=== PATIENT | female | born 1995 | race Caucasian/White ===

== ENCOUNTER → 2016-06-11 | Outpatient (REF) | payer BC | LOC: M SFHCLERA 19:29 | PROVIDERS: ATTEND Physician Assistant | DX: R05 Cough (principal) ==

== ENCOUNTER → 2016-06-11 | Outpatient (CLI) | payer BC ==
--- NOTE | 2016-06-11 19:35 | REP ---
Chest two views HISTORY: Cough Comparison: None The lungs are clear. The heart is normal in size. The pulmonary vasculature is normal in appearance. The bony structure is intact. IMPRESSION: No acute disease. Signed by Flako Rodriguez MD 06/11/2016 07:27 P
== END ==
LOC: M LRY 19:09
PROVIDERS: ATTEND Physician Assistant
DX: R05 Cough (principal)

== ENCOUNTER → 2018-09-28 | Outpatient (CLI) | payer OTHER ==
--- NOTE | 2018-09-28 18:37 | REP ---
Clinical: Positive test. Technique: Transabdominal and transvaginal first trimester obstetrical ultrasound with color Doppler evaluation. Findings: Heterogeneous uterus measures 8.0 x 4.1 x 5.5 cm. Small cystic changes noted to the endometrium. A gestational sac is identified with yolk sac, but no pole. Mean sac diameter of 6.7 mm corresponds to 6 weeks 0 days gestational age. Bilateral ovaries are normal in appearance. Right ovary measures 2.7 x 1.7 x 1.5 cm. Left ovary measures 3.0 x 1.5 x 2.3 cm with 1.9 cm presumed hemorrhagic corpus luteal cyst. Impression: Gestational sac with yolk sac, but no pole currently identifiable. Differential diagnosis includes early intrauterine , possible blighted ovum, and less likely ectopic cannot be excluded. Correlation with serial HCG levels and follow-up ultrasound may be warranted. Electronically Signed by Silvio Shell MD 09/28/2018 06:29 P
[2018-09-28 21:26] LABS: ESTRADIOL 971.6 PG/ML; PROGESTERONE 28.38 NG/ML
== END ==
LOC: M RAD 18:00
PROVIDERS: ATTEND Obstetrics & Gynecology Reproductive Endocrinology
DX: Z32.01 Encounter for pregnancy test, result positive (principal)

== ENCOUNTER → 2018-10-05 | Outpatient (CLI) | payer OTHER ==
[~2018-10-05] MED LIST: PRENTAB9 PO
--- NOTE | 2018-10-05 19:10 | REPVR ---
EXAM: US First Trimester, Transabdominal and US Duplex Artery or Vein, Ovaries, Limited EXAM DATE/TIME: 10/05/2018 6:02 PM CLINICAL HISTORY: 23 years old, female; Lmp or gestational age (in weeks): 5wks; Other: Gestationa dating; ; Additional info: Viability TECHNIQUE: Imaging protocol: Real-time transabdominal obstetrical ultrasound of the maternal pelvis and a first trimester , less than 14 weeks 0 days, with image documentation. Real-time duplex ultrasound scan of the arterial or venous flow of the ovaries with B-mode, color Doppler flow and spectral waveform analysis, limited Duplex. COMPARISON: US OB 09/28/2018 5:59 PM. This demonstrated an intrauterine gestational sac containing a yolk sac. FINDINGS: GESTATION: Gestation: There is an intrauterine gestational sac demonstrating decidual reaction. This contains a yolk sac and pole. The pole crown-rump length is 0.4 cm corresponding to a gestational age of 6 weeks 1 day. Heart rate: The heart rate is 117 bpm. Placenta: No visible subchorionic bleed. Amniotic fluid: Amniotic and chorionic fluid are normal for gestational age. BIOMETRY: Estimated gestational age: See Gestation Finding. Estimated due date: The LILY is 05/30/2019. MATERNAL: Uterus: Unremarkable. Cervix: Unremarkable. Right adnexa: The right ovary measures 2.7 x 1.3 x 1.4 cm. Normal color and spectral blood flow. The arterial peak systolic velocity is 12.9 cm/s. Left adnexa: The left ovary measures 3.2 x 1.4 x 3.0 cm. Normal color and spectral blood flow. The arterial peak systolic velocity is 8.1 cm/s. Intraperitoneal: No intraperitoneal free fluid. IMPRESSION: Viable intrauterine gestation, as above. Electronically signed by: Kerline Lyle On 10/05/2018 19:10:13 PM
[2018-10-05 19:35] LABS: ESTRADIOL 918.3 PG/ML; PROGESTERONE 32.53 NG/ML; THYROID STIMULATING HORMONE 1.22 uIU/ML (0.358-3.740)
== END ==
LOC: M RAD 17:46
PROVIDERS: ATTEND Obstetrics & Gynecology Reproductive Endocrinology
DX: Z32.01 Encounter for pregnancy test, result positive (principal); Z36.89 Encounter for other specified antenatal screening; Z3A.01 Less than 8 weeks gestation of pregnancy

== ENCOUNTER → 2018-12-08 | Outpatient (CLI) | payer BC ==
[2018-12-08 18:31] LABS: BASO % 0.2 % (0.0-1.0); EOS % 0.3 % (0.0-3.0); HEMATOCRIT 36.7 % (36.0-47.0); HEMOGLOBIN 12.8 g/dl (12.0-15.5); LYMPH # 2.2 10^3/uL (1.5-5.0); LYMPH % 17.8 % (24.0-44.0); MEAN CORPUSCULAR HEMOGLOBIN 31.9 pg (27.0-33.0); MEAN CORPUSCULAR HGB CONC 34.9 g/dl (32.0-36.5); MEAN CORPUSCULAR VOLUME 91.5 fl (80.0-96.0); MONO # 0.6 10^3/uL (0.0-0.8); NEUTROPHILS # 9.3 10^3/uL (1.5-8.5); NEUTROPHILS % 76.2 % (36.0-66.0); PLATELET COUNT, AUTOMATED 333 10^3/uL (150-450); RED BLOOD COUNT 4.01 10^6/uL (4.00-5.40); WHITE BLOOD COUNT 12.2 10^3/uL (4.0-10.0)
[2018-12-08 20:37] LABS: CHLAMYDIA DNA AMPLIFICATION NEGATIVE (NEGATIVE); GC DNA AMPLIFICATION NEGATIVE (NEGATIVE)
[2018-12-08 20:51] LABS: RUBELLA IgG QUALITATIVE IMMUNE (IMMUNE)
[2018-12-10 12:04] LABS: HIV 1&2 SCREEN CENTAUR NEGATIVE (NEGATIVE)
== END ==
LOC: M SMT 13:16
PROVIDERS: ATTEND Advanced Practice Midwife
DX: Z34.81 Encounter for supervision of other normal pregnancy, first trimester (principal); Z3A.00 Weeks of gestation of pregnancy not specified

== ENCOUNTER → 2019-01-03 | Outpatient (CLI) | payer BC ==
--- NOTE | 2019-01-03 09:31 | REP ---
OB ULTRASOUND: Real-time sonographic evaluation of the gravid uterus is performed. There is a single living intrauterine gestation. The estimated gestational age is 18 weeks 2 days based on fertilization date, EDC 06/04/2019. BPD 46 mm = 19 weeks 6 days, at the 90th percentile. HC 167 mm = 19 weeks 3 days, at the 83rd percentile. AC 150 mm = 20 weeks 2 days, at the 91st percentile. Femur length 30 mm = 119 weeks 2 days, at the 75th percentile. HC/AC ratio 1.12 within normal range of 1.07 to 1.26. Estimated weight 311 grams over 97th percentile. Cervix is closed and measures 2.8 cm in length. heart rate 158 beats per minute. SEEN/GROSSLY UNREMARKABLE Lateral ventricles Yes Posterior fossa Yes Upper lip No Four-chamber heart Yes LVOT Yes RVOT No Stomach Yes Cord insertion Yes Three vessel cord Yes Kidneys Yes Bladder Yes Spine Yes position: Vertex. Placenta: Posterior and grade 0 with no previa or abruption. Amniotic fluid: Within normal limits. Electronically Signed by Dave Amado MD 01/03/2019 04:29 P
== END ==
LOC: M RAD 06:23
PROVIDERS: ATTEND Advanced Practice Midwife
DX: Z34.82 Encounter for supervision of other normal pregnancy, second trimester (principal); Z3A.18 18 weeks gestation of pregnancy

== ENCOUNTER → 2019-02-03 | Outpatient (CLI) | payer BC ==
--- NOTE | 2019-02-03 09:42 | REP ---
Clinical: Anatomical evaluation. Comparison: 01/03/2019 . Findings: Examination demonstrates a single live intrauterine in cephalic presentation. motion is identified by technologist. Placenta is noted posterior and grade zero without evidence for placenta previa or abruption. Amniotic fluid volume is normal. Cervix measures 3.5 cm in length and appears closed. No evidence for nuchal cord. Gestational age by LMP 23 weeks 3 days with LILY 05/30/2019 . Gestational age by current measurements 24 weeks 2 days with LILY 05/24/2019 . FHR equals 141 beats per minute. Estimated weight 669 grams ( 95th percentile). Anatomical assessment demonstrates normal structures including cranium, choroid plexus, cavum, cerebellum/posterior fossa, facial features, lungs, four-chamber heart/ventricular outflow tracts, diaphragm, stomach, cord insertion/three-vessel cord, kidneys/bladder, spine, and extremities. Impression: Single live intrauterine in cephalic presentation demonstrating appropriate interval growth. Anatomical assessment is complete and normal. Electronically Signed by Silvio Shell MD 02/03/2019 09:35 A
== END ==
LOC: M RAD 08:48
PROVIDERS: ATTEND Advanced Practice Midwife
DX: O09.812 Supervision of pregnancy resulting from assisted reproductive technology, second trimester (principal)

== ENCOUNTER → 2019-02-22 | Outpatient (CLI) | payer BC ==
[2019-02-22 14:04] LABS: HEMATOCRIT 35.8 % (36.0-47.0); HEMOGLOBIN 11.8 g/dl (12.0-15.5); MEAN CORPUSCULAR HEMOGLOBIN 31.1 pg (27.0-33.0); MEAN CORPUSCULAR VOLUME 94.5 fl (80.0-96.0); PLATELET COUNT, AUTOMATED 321 10^3/uL (150-450); RED BLOOD COUNT 3.79 10^6/uL (4.00-5.40)
== END ==
LOC: M SMT 08:18
PROVIDERS: ATTEND Advanced Practice Midwife
DX: O26.892 Other specified pregnancy related conditions, second trimester (principal); Z3A.00 Weeks of gestation of pregnancy not specified

== ENCOUNTER → 2019-03-16 | Outpatient (CLI) | payer BC | LOC: M LAB 07:08 | PROVIDERS: ATTEND Advanced Practice Midwife | DX: R73.02 Impaired glucose tolerance (oral) (principal) ==

== ENCOUNTER 2019-04-12 15:57 | Outpatient (CLI) | payer BC ==
[~2019-04-12] VITALS: Ht 162.6 cm; Wt 95.2 kg
[2019-04-12 16:31] VITALS: BP 134/88
[2019-04-12 16:38] VITALS: BP 136/70
[2019-04-12] MEDS ORDERED: PRENTAB9 PO (17:14)
[2019-04-12 17:26] VITALS: BP 119/71
[2019-04-12] MEDS ORDERED: FIORICET TAB PO ONE (18:45)
[2019-04-12 18:48] VITALS: BP 136/80
== END 2019-04-12 20:10 | disposition home or self-care (01) ==
LOC: M LDO 15:57
PROVIDERS: ATTEND Obstetrics & Gynecology
DX: O99.353 Diseases of the nervous system complicating pregnancy, third trimester (principal); G43.909 Migraine, unspecified, not intractable, without status migrainosus; Z3A.33 33 weeks gestation of pregnancy
CPT/HCPCS: 59025; G0463

== ENCOUNTER → 2019-05-04 | Outpatient (REF) | payer BC | LOC: M SFHCWAGY 13:29 | PROVIDERS: ATTEND Advanced Practice Midwife | DX: O09.813 Supervision of pregnancy resulting from assisted reproductive technology, third trimester (principal) ==

== ENCOUNTER 2019-05-18 20:32 | Outpatient (CLI) | payer BC ==
[~2019-05-18] VITALS: Ht 162.6 cm; Wt 95.6 kg
[2019-05-18 20:54] VITALS: BP 121/71
[2019-05-18 23:13] VITALS: BP 134/83
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
== END 2019-05-18 23:20 | disposition home or self-care (01) ==
LOC: M LDO 20:32
PROVIDERS: ATTEND Advanced Practice Midwife
DX: O26.893 Other specified pregnancy related conditions, third trimester (principal); R10.9 Unspecified abdominal pain; O09.813 Supervision of pregnancy resulting from assisted reproductive technology, third trimester; Z3A.38 38 weeks gestation of pregnancy
CPT/HCPCS: 59025; G0378; G0463

== ENCOUNTER 2019-05-26 17:39 | Inpatient (IN) | payer BC ==
[2019-05-26] VITALS (16 sets, daily range): BP systolic 118–164; BP diastolic 57–107
[~2019-05-26] VITALS: Ht 162.6 cm; Wt 91.8 kg
[~2019-05-26 17:39] MED LIST changes: -MAPA500T2 PO; -OSEL75CA PO
[2019-05-26] MEDS ORDERED: LR 1,000 ML IV SCH (18:05)
[2019-05-26] MEDS ORDERED: LACTATED RINGER'S 1000 ML IV STA (18:05)
[2019-05-26] MEDS ORDERED: MAPA500T2 PO ×2 (18:38→18:40)
[2019-05-26 18:48] LABS: HEMATOCRIT 36.3 % (36.0-47.0); HEMOGLOBIN 12.3 g/dl (12.0-15.5); MEAN CORPUSCULAR HEMOGLOBIN 30.2 pg (27.0-33.0); MEAN CORPUSCULAR HGB CONC 33.9 g/dl (32.0-36.5); MEAN CORPUSCULAR VOLUME 89.2 fl (80.0-96.0); PLATELET COUNT, AUTOMATED 287 10^3/uL (150-450); RED BLOOD COUNT 4.07 10^6/uL (4.00-5.40); WHITE BLOOD COUNT 12.8 10^3/uL (4.0-10.0)
[2019-05-26] MEDS ORDERED: FENTANYL 2MCG/ML ROPIVACAINE 0.2% IN 0.9% NACL 100ML IVBAG As Ordered ONE (18:54)
[2019-05-26] MEDS ORDERED: OXYTOCIN 30 UNITS IN 0.9% NaCl 500ML IV BAG (J2590) As Ordered ONE (20:23)
[2019-05-26] MEDS: LR 1,000 ML IV SCH (20:55)
[2019-05-26] MEDS ORDERED: OXYTOCIN DRIP 30 UNITS in IV 1 EA IV SCH (20:55)
[2019-05-26] MEDS ORDERED: ACETAMINOPHEN TAB 650MG DOSE (2X325MG) PO PRN (21:00)
[2019-05-26] MEDS ORDERED: RHOGAM 300 MCG (1500 IU) INJ (J2790) IM SCH (21:00)
[2019-05-26] MEDS ORDERED: ONDANSETRON 4MG/2ML VIAL (J2405) IV PRN (21:00)
[2019-05-26] MEDS ORDERED: DOCUSATE SODIUM 100 MG CAP PO PRN (21:00)
[2019-05-26] MEDS ORDERED: IBUPROFEN 600 MG TAB PO PRN (21:00)
[2019-05-26] MEDS ORDERED: ACETAMINOPHEN 500 MG TAB PO PRN (21:00)
[2019-05-26] MEDS ORDERED: DIBUCAINE 1% OINTMENT 30GM TOP PRN (21:00)
[2019-05-26] MEDS ORDERED: MEASLES,MUMPS,RUBELLA VACCINE INJ (MMR-II) (90707) SC SCH (21:00)
[2019-05-26] MEDS ORDERED: PROMETHAZINE 25 MG TAB PO PRN (21:00)
[2019-05-26] MEDS: OSELTAMIVIR PHOSPHATE 75 MG CAP (TAMIFLU) PO SCH (21:06)
[2019-05-26] MEDS: IBUPROFEN 800 MG TAB PO PRN (23:22)
[2019-05-27] VITALS (33 sets, daily range): BP systolic 119–150; BP diastolic 58–83
[2019-05-27] MEDS ORDERED: MORPHINE 10 MG/ML 1ML VIAL (J2270) As Ordered ONE
[2019-05-27 01:15] LABS: HEMATOCRIT 30.1 % (36.0-47.0)
[2019-05-27 01:19] LABS: HEMOGLOBIN 10.3 g/dl (12.0-15.5)
[2019-05-27 02:17] LABS: INR 1.06; PARTIAL THROMBOPLASTIN TIME 31.5 SECONDS (25.0-38.4); PROTHROMBIN TIME 13.5 SECONDS (11.8-14.0)
[2019-05-27] MEDS ORDERED: fentaNYL 100 MCG/2 ML INJECTION (J3010) As Ordered ONE (02:23)
[2019-05-27] MEDS ORDERED: SUCCINYLCHOLINE 100 MG/5 ML SYRINGE (J0330) As Ordered ONE (02:23)
[2019-05-27] MEDS ORDERED: MIDAZOLAM INJ 2 MG/2 ML VIAL (J2250) As Ordered ONE (02:23)
[2019-05-27] MEDS ORDERED: LIDOCAINE 2% INJ 100 MG/5 ML SDV (FOR ANES.) As Ordered ONE (02:23)
[2019-05-27] MEDS ORDERED: propofoL 200 MG/20 ML VIAL As Ordered ONE (02:23)
[2019-05-27] MEDS ORDERED: ESTROGENS VAGINAL CREAM 30GM As Ordered ONE (02:34)
[2019-05-27] MEDS ORDERED: KETOROLAC 60 MG/2 ML VIAL (J1885) As Ordered ONE (02:38)
[2019-05-27] MEDS ORDERED: dexameTHASONE 4 MG/ML 1ML VIAL (J1100) As Ordered ONE (02:38)
[2019-05-27] MEDS ORDERED: ONDANSETRON 4MG/2ML VIAL (J2405) As Ordered ONE (02:38)
[2019-05-27] MEDS ORDERED: MORPHINE 10 MG/ML 1ML VIAL (J2270) IV ONE (03:00)
[2019-05-27] MEDS ORDERED: MORPHINE 10 MG/ML 1ML VIAL (J2270) IM ONE (03:00)
[2019-05-27] MEDS ORDERED: ONDANSETRON 4MG/2ML VIAL (J2405) IV PRN (03:15)
[2019-05-27] MEDS ORDERED: PERCOCET 5MG/325MG TAB PO PRN (03:15)
[2019-05-27] MEDS ORDERED: LR 1,000 ML IV SCH (03:15)
[2019-05-27] MEDS ORDERED: LIDOCAINE 1% MDV 20ML VIAL SC ONE (03:15)
[2019-05-27] MEDS ORDERED: KETOROLAC 30 MG/ML VIAL (J1885) IV PRN (03:15)
[2019-05-27] MEDS ORDERED: fentaNYL 100 MCG/2 ML INJECTION (J3010) IV PRN (03:15)
[2019-05-27] MEDS ORDERED: HYDROMORPHONE HCL 0.5 MG/ 0.5 ML SYRINGE (J1170 PER 1) IV PRN (03:15)
[2019-05-27] MEDS ORDERED: MORPHINE 4 MG/ML 1ML VIAL/SYRINGE (J2270) IV PRN (03:30)
[2019-05-27] MEDS ORDERED: ceFAZolin SOD 2 GM in IV 1 EA IV ONE (04:00)
[2019-05-27] MEDS: ceFAZolin SOD 2 GM in IV 1 EA IV SCH ×3 (04:11→20:36)
[2019-05-27] MEDS: LR 1,000 ML IV SCH (04:28)
[2019-05-27] MEDS: OSELTAMIVIR PHOSPHATE 75 MG CAP (TAMIFLU) PO SCH ×2 (09:19→20:36)
[2019-05-27] MEDS: PRENATAL VITAMINS CHEWABLE TABLET PO SCH (10:05)
[2019-05-27] MEDS: DOCUSATE SODIUM 100 MG CAP PO SCH ×2 (14:45→20:36)
[2019-05-27] MEDS: IBUPROFEN 800 MG TAB PO PRN (15:11)
[2019-05-27] MEDS: guaiFENesin DM LIQ 10ML UD PO PRN ×2 (15:12→21:24)
[2019-05-28 01:58] VITALS: BP 130/76
[2019-05-28] MEDS: ceFAZolin SOD 2 GM in IV 1 EA IV SCH (04:51)
[2019-05-28 04:54] VITALS: BP 130/99
[2019-05-28] MEDS: DOCUSATE SODIUM 100 MG CAP PO SCH ×2 (08:32→20:15)
[2019-05-28] MEDS: OSELTAMIVIR PHOSPHATE 75 MG CAP (TAMIFLU) PO SCH ×2 (08:32→20:16)
[2019-05-28] MEDS: IBUPROFEN 800 MG TAB PO PRN ×2 (08:32→17:24)
[2019-05-28] MEDS: PRENATAL VITAMINS CHEWABLE TABLET PO SCH (08:32)
[2019-05-28 14:12] VITALS: BP 122/64
[2019-05-28] MEDS: guaiFENesin DM LIQ 10ML UD PO PRN (17:24)
[2019-05-28 18:05] VITALS: BP 132/74
[2019-05-28 22:00] VITALS: BP 117/67
[2019-05-29 06:00] VITALS: BP 114/64
[2019-05-29] MEDS: DOCUSATE SODIUM 100 MG CAP PO SCH (09:00)
[2019-05-29] MEDS: OSELTAMIVIR PHOSPHATE 75 MG CAP (TAMIFLU) PO SCH (09:27)
[2019-05-29] MEDS: PRENATAL VITAMINS CHEWABLE TABLET PO SCH (09:27)
[2019-05-29] MEDS ORDERED: OSEL75CA PO (10:43)
== END 2019-05-29 12:50 | disposition home or self-care (01) | DRG 560 ==
LOC: M LDI 17:39 → M OBS 23:20 → M LDI 05-27 03:00 → M OBS 05-27 11:15
PROVIDERS: ADMIT Obstetrics & Gynecology; ATTEND Obstetrics & Gynecology
PROC: 10E0XZZ Delivery of Products of Conception, External Approach (ICD-10-PCS; principal; 2019-05-26)
PROC: 0KQM0ZZ Repair Perineum Muscle, Open Approach (ICD-10-PCS; 2019-05-26)
PROC: 0UCG7ZZ Extirpation of Matter from Vagina, Via Natural or Artificial Opening (ICD-10-PCS; 2019-05-26)
PROC: 30233N1 Transfusion of Nonautologous Red Blood Cells into Peripheral Vein, Percutaneous Approach (ICD-10-PCS; 2019-05-26)
DX: O99.52 Diseases of the respiratory system complicating childbirth (principal); J10.1 Influenza due to other identified influenza virus with other respiratory manifestations; Z3A.39 39 weeks gestation of pregnancy; Z37.0 Single live birth; O70.1 Second degree perineal laceration during delivery; O71.7 Obstetric hematoma of pelvis; O72.1 Other immediate postpartum hemorrhage

== ENCOUNTER → 2019-05-26 | Outpatient (REF) | payer BC ==
[~2019-05-26] MED LIST changes: +MAPA500T2 PO; +OSEL75CA PO
[2019-05-26 15:42] LABS: INFLUENZA A AMPLIFICATION POSITIVE (NEGATIVE); INFLUENZA B AMPLIFICATION NEGATIVE (NEGATIVE)
== END ==
LOC: M LAB REF 14:56
PROVIDERS: ATTEND Physician Assistant
DX: J11.1 Influenza due to unidentified influenza virus with other respiratory manifestations (principal)

== ENCOUNTER → 2020-01-24 | Outpatient (CLI) | payer BC ==
[~2020-01-24] MED LIST changes: +MAPA500T2 PO; +OSEL75CA PO
--- NOTE | 2020-01-24 08:01 | REP ---
INDICATION: N92.0 MENORRHAGIA COMPARISON: None. TECHNIQUE: Transabdominal pelvic ultrasound followed by transvaginal examination for better evaluation of the endometrium and adnexa with color Doppler evaluation of the ovaries. FINDINGS: Bladder is under distended and measures 4.7 x 1.8 x 5.2 cm Normal anteverted uterus measures 7.0 x 3.3 x 4.6 cm. The endometrial complex measures 5.2 mm thickness. No discrete uterine or endometrial abnormalities are appreciated. Bilateral ovaries are normal in appearance and vascularity without evidence for torsion. Right ovary measures 2.9 x 1.5 x 1.3 cm; R I = 0.40. Left ovary measures 3.4 x 1.6 x 1.9 cm and includes 1.7 cm presumed physiologic cyst/dominant follicle; R I = 0.53. No pelvic fluid or adnexal mass lesion. IMPRESSION: Essentially normal pelvic ultrasound. <Electronically signed by Silvio Shell > 01/24/20 0750
== END ==
LOC: M WHC 06:59
PROVIDERS: ATTEND Advanced Practice Midwife
DX: N92.0 Excessive and frequent menstruation with regular cycle (principal)

== ENCOUNTER → 2020-06-28 | Outpatient (CLI) | payer BC ==
--- NOTE | 2020-06-28 11:44 | REP ---
INDICATION: PALPABLE ABNORMALITIES OF EACH BREAST; PALABLE ABNORMALIES ON EACH BREAST. COMPARISON: No comparison prior breast imaging. TECHNIQUE: Bilateral CC and MLO) view(s) were taken. Skin markers are affixed to the skin at site of the palpable lump. 3D tomography was utilized and bilateral targeted sonography is performed. FINDINGS: Breast parenchyma is heterogeneously dense in a pattern which may inhibit the sensitivity mammography. There are some benign dermal calcifications in the periareolar region on the right. There are 2 adjacent nodular densities laterally in the left breast at approximately 3 o'clock position. These may be intramammary lymph nodes. The largest measures 10 mm in greatest diameter. There is no other evidence of mass, architectural distortion, worrisome skin change, or suspicious microcalcification in either breast. The Volpara volumetric breast density pattern is C. Bilateral targeted sonographic imaging. Heterogeneous fibroglandular background echotexture is seen. No abnormality is noted at the site of the palpable lumps on either breast. In the 3 o'clock position of the left breast there are 2 well-circumscribed hypoechoic solid-appearing nodules adjacent to 1 another corresponding with the mammographic densities. These measure as follows: 0.8 x 0.5 x 0.8, and 0.5 x 0.3 x 0.6 cm. These are nonspecific and most likely risk reflect fibroadenomas. They are not simple cysts.. IMPRESSION: BI-RADS category 4 suspicious left breast imaging. No abnormality corresponding to any of the patient's palpable lumps. However, there are 2 nodules adjacent 1 another in 3 o'clock position left breast on both mammography and sonography which cannot be categorized as definitely benign. Consider histologic sampling. This patient's estimated Tyrer-Cuzick lifetime risk assessment for breast cancer is 24.8%. Enhanced screening in the form of annual bilateral breast MRI scanning is warranted. Bilateral breast MRI scanning is recommended annually, beginning 6 months from now. This mammogram was interpreted with the aid of an FDA-approved computer-aided detection system. The patient states she had a clinical breast exam in . The patient letter being requested is M4 dense. RECOMMENDATION: Ultrasound-guided needle biopsy of the left breast with marker clip placement and post clip placement left breast mammography recommended.. <Electronically signed by Anjum Bee > 06/28/20 [id number]
== END ==
LOC: M WHC 08:09
PROVIDERS: ATTEND Physician Assistant
DX: N63.21 Unspecified lump in the left breast, upper outer quadrant (principal); N60.29 Fibroadenosis of unspecified breast; Z97.8 Presence of other specified devices
CPT/HCPCS: 76642; 77066; G0279

== ENCOUNTER → 2021-01-10 | Outpatient (CLI) | payer BC ==
[2021-01-10 19:13] LABS: FREE T4 0.98 NG/DL (0.76-1.46); THYROID STIMULATING HORMONE 0.825 uIU/ML (0.358-3.740)
[2021-01-10 19:15] LABS: PROLACTIN 10.2 NG/ML
== END ==
LOC: M LAB 16:07
PROVIDERS: ATTEND Family Medicine
DX: N64.3 Galactorrhea not associated with childbirth (principal)

== ENCOUNTER → 2022-01-01 | Outpatient (REF) | payer BC ==
[2022-01-01 18:55] LABS: APPEARANCE, URINE MANUAL CLEAR (CLEAR); COLOR, URINE MANUAL YELLOW (YELLOW)
[2022-01-01 18:56] LABS: BILIRUBIN, URINE MANUAL NEGATIVE (NEGATIVE); BLOOD URINE MANUAL POSITIVE (NEGATIVE); GLUCOSE, URINE (UA) MANUAL NEGATIVE (NEGATIVE); KETONE, URINE MANUAL NEGATIVE (NEGATIVE); LEUKOCYTE ESTERASE, URINE MAN NEGATIVE (NEGATIVE); NITRITE, URINE MANUAL NEGATIVE (NEGATIVE); PROTEIN, URINE MANUAL NEGATIVE (NEGATIVE); SPECIFIC GRAVITY,URINE MANUAL 1.025 (1.002-1.035); UROBILINOGEN, URINE MANUAL NORMAL (NORMAL)
[2022-01-01 19:19] LABS: BACTERIA, URINE SMALL AMOUNT; HYALINE CAST, URINE NONE SEEN /lpf (0-1); MUCUS, URINE SMALL AMOUNT (NEGATIVE); RBC, URINE 0-1 /hpf (0-3); SQUAMOUS EPITHELIAL CELL URINE MOD AMOUNT /hpf (SMALL AMT); WBC, URINE NONE SEEN /hpf (0-3)
== END ==
LOC: M LAB REF 17:01
PROVIDERS: ATTEND Nurse Practitioner Adult Health
DX: R35.0 Frequency of micturition (principal)

== ENCOUNTER → 2022-02-03 | Outpatient (CLI) | payer BC | LOC: M WHC 10:41 | PROVIDERS: ATTEND Nurse Practitioner Adult Health | DX: R35.0 Frequency of micturition (principal) ==

== ENCOUNTER → 2022-02-19 | Outpatient (REF) | payer BC | LOC: M LAB REF 16:57 | PROVIDERS: ATTEND Nurse Practitioner Adult Health | DX: R50.9 Fever, unspecified (principal) ==

== ENCOUNTER → 2023-11-10 | Outpatient (CLI) | payer OTHER, BC | LOC: M WHC 06:32 | PROVIDERS: ATTEND Physician Assistant | DX: Z97.5 Presence of (intrauterine) contraceptive device (principal) ==

== ENCOUNTER → 2024-05-12 | Outpatient (CLI) | payer OTHER | LOC: M WHC 11:46 | PROVIDERS: ATTEND Physician Assistant | DX: N83.291 Other ovarian cyst, right side (principal) ==